=== PATIENT | female | born 1985 ===

== ENCOUNTER 2020-09-14 08:51 | Emergency (ER) | payer MEDICAID ==
[2020-09-14] MEDS ORDERED: Albuterol/Ipratropium 3.0-0.5 MG/3 ML Neb Soln NEB ONE ×2 (09:43→10:20)
[2020-09-14] MEDS ORDERED: methylPREDNISolone Sodium Succinate 125 MG/2 ML SDV IVPUSH ONE (09:43)
--- NOTE | 2020-09-14 09:43 | CR ---
PROCEDURE INFORMATION: Exam: XR Chest Exam date and time: 09/14/2020 9:15 AM Age: 35 years old Clinical indication: Other: Chest pain TECHNIQUE: Imaging protocol: XR of the chest. Views: 1 view. COMPARISON: No relevant prior studies available. FINDINGS: Lungs: Unremarkable. No consolidation. Pleural spaces: Unremarkable. No pleural effusion. No pneumothorax. Heart/Mediastinum: Unremarkable. No cardiomegaly. Bones/joints: Unremarkable. IMPRESSION: No acute findings.
--- NOTE | 2020-09-14 09:46 | EDM.PDOC ---
ED HPI GENERAL MEDICAL PROBLEM - General Chief Complaint: Respiratory Problem Stated Complaint: AMBULANCE Time Seen by Provider: 09/14/20 09:15 Source of Information: Reports: Patient, Police (Assisted nurse, [facility] department), RN, RN Notes Reviewed History Limitations: Reports: No Limitations, Respiratory Distress - History of Present Illness INITIAL COMMENTS - FREE TEXT/NARRATIVE: Patient is a 35-year-old female who presents to ER per [place] [facility] from [place] with complaint of shortness of breath. Patient admits to history of asthma. States in the past few months she has had an asthma attack and has been intubated. Patient was seen in [place] on Thursday with an asthma attack, started on steroids and Z-Pb. Patient has not been on these meds since incarcerated here. Patient states she has felt increasingly more short of breath since Thursday. States she did have a temperature on Thursday which she states was 106.2. Patient is afebrile upon arrival to the ER. EMS states oxygen saturation was 80% at the care home. Patient ambulated into the ER, oxygen saturation was 94% at that time on room air. Patient sat down on the bed and began to hyperventilate, patient was placed on 1 L per nasal cannula for comfort. Onset: Gradual Onset Date: 09/10/20 - Related Data Allergies Allergy/AdvReac Type Severity Reaction Status Date / Time heparin Allergy Rash Verified 09/14/20 09:03 Iodinated Contrast Media Allergy Respiratory Verified 09/14/20 09:03 Distress Home Meds: Home Meds . [No Known Home Meds] 09/14/20 [History] Social & Family History - Tobacco Use Tobacco Use Status *Q: Current Every Day Tobacco User Years of Tobacco use: 19 Packs/Tins Daily: 0.5 - Caffeine Use Caffeine Use: Reports: Coffee, Energy Drinks, Soda, Tea, Other - Recreational Drug Use Recreational Drug Use: Yes Drug Use in Last 12 Months: Yes Recreational Drug Type: Reports: Methamphetamine ED ROS GENERAL - Review of Systems Review Of Systems: Comprehensive ROS is negative, except as noted in HPI. ED EXAM, GENERAL - Physical Exam Exam: See Below Exam Limited By: No Limitations General Appearance: Alert, WD/WN, Anxious, Mild Distress Eye Exam: Bilateral Eye: EOMI, Normal Inspection Ears: Normal External Exam, Hearing Grossly Normal Nose: Normal Inspection Throat/Mouth: Normal Inspection, Normal Voice, No Airway Compromise Head: Atraumatic, Normocephalic Neck: Normal Inspection, Supple, Non-Tender, Full Range of Motion Respiratory/Chest: No Accessory Muscle Use, Chest Non-Tender, Wheezing (Throughout) Cardiovascular: Normal Peripheral Pulses, Regular Rate, Rhythm, No Edema, No Gallop, No JVD, No Murmur, No Rub, Tachycardia Peripheral Pulses: 2+: Radial (L), Radial (R) GI/Abdominal: Normal Bowel Sounds, Soft, Non-Tender (Female) Exam: Deferred Rectal (Female) Exam: Deferred Back Exam: Normal Inspection, Full Range of Motion, NT Extremities: Normal Inspection, Normal Range of Motion, Non-Tender, Normal Capillary Refill, No Pedal Edema Neurological: Alert, Oriented, Normal Cognition, Normal Gait, No Motor/Sensory Deficits Psychiatric: Normal Affect, Normal Mood, Anxious Skin Exam: Warm, Dry, Intact, Normal Color, No Rash Lymphatic: No Adenopathy Course - Vital Signs Last Recorded V/S: Last Vital Signs Temp 96.6 F L 09/14/20 09:09 Pulse 122 H 09/14/20 09:09 Resp 22 H 09/14/20 09:09 BP 138/88 09/14/20 09:09 Pulse Ox 94 L 09/14/20 09:09 - Orders/Labs/Meds Orders: Active Orders 24 hr Category Date Time Status RT Aerosol Therapy [RC] ASDIRECTED Care 09/14/20 09:45 Active RT Aerosol Therapy [RC] ASDIRECTED Care 09/14/20 10:20 Active CULTURE BLOOD [BC] Stat Lab 09/14/20 09:36 Received CULTURE BLOOD [BC] Stat Lab 09/14/20 10:10 Received CULTURE URINE [RM] Stat Lab 09/14/20 12:29 Received UA W/MICROSCOPIC [URIN] Stat Lab 09/14/20 12:29 Results Blood Culture x2 Reflex Set [OM.PC] Stat Oth 09/14/20 09:42 Ordered Labs: Laboratory Tests 09/14/20 09/14/20 09/14/20 Range/Units 09:36 09:36 09:36 WBC 11.4 H (5.0-10.0) 10^3/uL RBC 5.07 (4.2-5.4) 10^6/uL Hgb 13.9 (12.0-16.0) g/dL Hct 44.3 (37.0-47.0) % MCV 87.4 (80-100) fL MCH 27.4 (27.0-34.0) pg MCHC 31.4 L (33.0-35.0) g/dL Plt Count 374 (150-450) 10^3/uL Neut % (Auto) 63.3 (42.2-75.2) % Lymph % (Auto) 24.6 (20.5-50.1) % [place] % (Auto) 4.8 (2-8) % Eos % (Auto) 7.0 H (1.0-3.0) % Baso % (Auto) 0.3 (0.0-1.0) % D-Dimer, Quantitative (0-400) ng/mL Sodium 137 (136-145) mmol/L Potassium 4.1 (3.5-5.1) mmol/L Chloride 97 L (98-107) mmol/L Carbon Dioxide 30 (21-32) mmol/L Anion Gap 14.1 H (7-13) mEq/L BUN 10 (7-18) mg/dL Creatinine 0.77 (0.55-1.02) mg/dL Est Cr Clr Drug Dosing 85.96 mL/min Estimated GFR (MDRD) > 60 BUN/Creatinine Ratio 13.0 (No establ ref range) Glucose 109 H (70-99) mg/dL Lactic Acid (0.4-2.0) mmol/L Calcium 9.5 (8.5-10.1) mg/dL Magnesium 2.2 (1.8-2.4) mg/dL Total Bilirubin 0.2 (0.2-1.0) mg/dL AST 11 L (15-37) U/L ALT 24 (14-59) U/L Alkaline Phosphatase 80 (46-116) U/L Troponin I High Sens (<=51) pg/mL C-Reactive Protein 1.0 H (0.0-0.9) mg/dL B-Natriuretic Peptide 20 (0-100) pg/ml Total Protein 7.9 (6.4-8.2) g/dL Albumin 3.1 L (3.4-5.0) g/dL Globulin 4.8 Albumin/Globulin Ratio 0.65 Urine Color (YELLOW) Urine Appearance (CLEAR) Urine pH (5.0-9.0) Ur Specific [place] (1.005-1.030) Urine Protein (NEGATIVE) Urine Glucose (UA) (NEGATIVE) Urine Ketones (NEGATIVE) Urine Occult Blood (NEGATIVE) Urine Nitrite (NEGATIVE) Urine Bilirubin (NEGATIVE) Urine Urobilinogen (0.2-1.0) mg/dL Ur Leukocyte Esterase (NEGATIVE) Urine HCG, Qual Urine Opiates Screen (NEGATIVE) Ur Oxycodone Screen (NEGATIVE) Urine Methadone Screen (NEGATIVE) Ur Barbiturates Screen (NEGATIVE) U Tricyclic Antidepress (NEGATIVE) Ur Phencyclidine Scrn (NEGATIVE) Ur Amphetamine Screen (NEGATIVE) U Methamphetamines Scrn (NEGATIVE) Urine MDMA Screen (NEGATIVE) U Benzodiazepines Scrn (NEGATIVE) Urine Cocaine Screen (NEGATIVE) U Marijuana (THC) Screen (NEGATIVE) Influenza Type A RNA (NEGATIVE) Influenza Type B RNA (NEGATIVE) SARS-CoV-2 RNA (MARY KATE) (NEGATIVE) 09/14/20 09/14/20 09/14/20 Range/Units 09:36 09:36 09:36 WBC (5.0-10.0) 10^3/uL RBC (4.2-5.4) 10^6/uL Hgb (12.0-16.0) g/dL Hct (37.0-47.0) % MCV (80-100) fL MCH (27.0-34.0) pg MCHC (33.0-35.0) g/dL Plt Count (150-450) 10^3/uL Neut % (Auto) (42.2-75.2) % Lymph % (Auto) (20.5-50.1) % [place] % (Auto) (2-8) % Eos % (Auto) (1.0-3.0) % Baso % (Auto) (0.0-1.0) % D-Dimer, Quantitative 398 (0-400) ng/mL Sodium (136-145) mmol/L Potassium (3.5-5.1) mmol/L Chloride (98-107) mmol/L Carbon Dioxide (21-32) mmol/L Anion Gap (7-13) mEq/L BUN (7-18) mg/dL Creatinine (0.55-1.02) mg/dL Est Cr Clr Drug Dosing mL/min Estimated GFR (MDRD) BUN/Creatinine Ratio (No establ ref range) Glucose (70-99) mg/dL Lactic Acid 2.0 (0.4-2.0) mmol/L Calcium (8.5-10.1) mg/dL Magnesium (1.8-2.4) mg/dL Total Bilirubin (0.2-1.0) mg/dL AST (15-37) U/L ALT (14-59) U/L Alkaline Phosphatase (46-116) U/L Troponin I High Sens 8 (<=51) pg/mL C-Reactive Protein (0.0-0.9) mg/dL B-Natriuretic Peptide (0-100) pg/ml Total Protein (6.4-8.2) g/dL Albumin (3.4-5.0) g/dL Globulin Albumin/Globulin Ratio Urine Color (YELLOW) Urine Appearance (CLEAR) Urine pH (5.0-9.0) Ur Specific [place] (1.005-1.030) Urine Protein (NEGATIVE) Urine Glucose (UA) (NEGATIVE) Urine Ketones (NEGATIVE) Urine Occult Blood (NEGATIVE) Urine Nitrite (NEGATIVE) Urine Bilirubin (NEGATIVE) Urine Urobilinogen (0.2-1.0) mg/dL Ur Leukocyte Esterase (NEGATIVE) Urine HCG, Qual Urine Opiates Screen (NEGATIVE) Ur Oxycodone Screen (NEGATIVE) Urine Methadone Screen (NEGATIVE) Ur Barbiturates Screen (NEGATIVE) U Tricyclic Antidepress (NEGATIVE) Ur Phencyclidine Scrn (NEGATIVE) Ur Amphetamine Screen (NEGATIVE) U Methamphetamines Scrn (NEGATIVE) Urine MDMA Screen (NEGATIVE) U Benzodiazepines Scrn (NEGATIVE) Urine Cocaine Screen (NEGATIVE) U Marijuana (THC) Screen (NEGATIVE) Influenza Type A RNA (NEGATIVE) Influenza Type B RNA (NEGATIVE) SARS-CoV-2 RNA (MARY KATE) (NEGATIVE) 09/14/20 09/14/20 09/14/20 Range/Units 11:28 12:29 12:29 WBC (5.0-10.0) 10^3/uL RBC (4.2-5.4) 10^6/uL Hgb (12.0-16.0) g/dL Hct (37.0-47.0) % MCV (80-100) fL MCH (27.0-34.0) pg MCHC (33.0-35.0) g/dL Plt Count (150-450) 10^3/uL Neut % (Auto) (42.2-75.2) % Lymph % (Auto) (20.5-50.1) % [place] % (Auto) (2-8) % Eos % (Auto) (1.0-3.0) % Baso % (Auto) (0.0-1.0) % D-Dimer, Quantitative (0-400) ng/mL Sodium (136-145) mmol/L Potassium (3.5-5.1) mmol/L Chloride (98-107) mmol/L Carbon Dioxide (21-32) mmol/L Anion Gap (7-13) mEq/L BUN (7-18) mg/dL Creatinine (0.55-1.02) mg/dL Est Cr Clr Drug Dosing mL/min Estimated GFR (MDRD) BUN/Creatinine Ratio (No establ ref range) Glucose (70-99) mg/dL Lactic Acid (0.4-2.0) mmol/L Calcium (8.5-10.1) mg/dL Magnesium (1.8-2.4) mg/dL Total Bilirubin (0.2-1.0) mg/dL AST (15-37) U/L ALT (14-59) U/L Alkaline Phosphatase (46-116) U/L Troponin I High Sens (<=51) pg/mL C-Reactive Protein (0.0-0.9) mg/dL B-Natriuretic Peptide (0-100) pg/ml Total Protein (6.4-8.2) g/dL Albumin (3.4-5.0) g/dL Globulin Albumin/Globulin Ratio Urine Color Yellow (YELLOW) Urine Appearance Slightly cloudy (CLEAR) Urine pH 7.0 (5.0-9.0) Ur Specific [place] >= 1.030 (1.005-1.030) Urine Protein Negative (NEGATIVE) Urine Glucose (UA) Negative (NEGATIVE) Urine Ketones Negative (NEGATIVE) Urine Occult Blood Trace-intact H (NEGATIVE) Urine Nitrite Negative (NEGATIVE) Urine Bilirubin Negative (NEGATIVE) Urine Urobilinogen 0.2 (0.2-1.0) mg/dL Ur Leukocyte Esterase Moderate H (NEGATIVE) Urine HCG, Qual Negative Urine Opiates Screen (NEGATIVE) Ur Oxycodone Screen (NEGATIVE) Urine Methadone Screen (NEGATIVE) Ur Barbiturates Screen (NEGATIVE) U Tricyclic Antidepress (NEGATIVE) Ur Phencyclidine Scrn (NEGATIVE) Ur Amphetamine Screen (NEGATIVE) U Methamphetamines Scrn (NEGATIVE) Urine MDMA Screen (NEGATIVE) U Benzodiazepines Scrn (NEGATIVE) Urine Cocaine Screen (NEGATIVE) U Marijuana (THC) Screen (NEGATIVE) Influenza Type A RNA Negative (NEGATIVE) Influenza Type B RNA Negative (NEGATIVE) SARS-CoV-2 RNA (MARY KATE) Negative (NEGATIVE) 09/14/20 Range/Units 12:29 WBC (5.0-10.0) 10^3/uL RBC (4.2-5.4) 10^6/uL Hgb (12.0-16.0) g/dL Hct (37.0-47.0) % MCV (80-100) fL MCH (27.0-34.0) pg MCHC (33.0-35.0) g/dL Plt Count (150-450) 10^3/uL Neut % (Auto) (42.2-75.2) % Lymph % (Auto) (20.5-50.1) % [place] % (Auto) (2-8) % Eos % (Auto) (1.0-3.0) % Baso % (Auto) (0.0-1.0) % D-Dimer, Quantitative (0-400) ng/mL Sodium (136-145) mmol/L Potassium (3.5-5.1) mmol/L Chloride (98-107) mmol/L Carbon Dioxide (21-32) mmol/L Anion Gap (7-13) mEq/L BUN (7-18) mg/dL Creatinine (0.55-1.02) mg/dL Est Cr Clr Drug Dosing mL/min Estimated GFR (MDRD) BUN/Creatinine Ratio (No establ ref range) Glucose (70-99) mg/dL Lactic Acid (0.4-2.0) mmol/L Calcium (8.5-10.1) mg/dL Magnesium (1.8-2.4) mg/dL Total Bilirubin (0.2-1.0) mg/dL AST (15-37) U/L ALT (14-59) U/L Alkaline Phosphatase (46-116) U/L Troponin I High Sens (<=51) pg/mL C-Reactive Protein (0.0-0.9) mg/dL B-Natriuretic Peptide (0-100) pg/ml Total Protein (6.4-8.2) g/dL Albumin (3.4-5.0) g/dL Globulin Albumin/Globulin Ratio Urine Color (YELLOW) Urine Appearance (CLEAR) Urine pH (5.0-9.0) Ur Specific [place] (1.005-1.030) Urine Protein (NEGATIVE) Urine Glucose (UA) (NEGATIVE) Urine Ketones (NEGATIVE) Urine Occult Blood (NEGATIVE) Urine Nitrite (NEGATIVE) Urine Bilirubin (NEGATIVE) Urine Urobilinogen (0.2-1.0) mg/dL Ur Leukocyte Esterase (NEGATIVE) Urine HCG, Qual Urine Opiates Screen Negative (NEGATIVE) Ur Oxycodone Screen Negative (NEGATIVE) Urine Methadone Screen Negative (NEGATIVE) Ur Barbiturates Screen Negative (NEGATIVE) U Tricyclic Antidepress Negative (NEGATIVE) Ur Phencyclidine Scrn Negative (NEGATIVE) Ur Amphetamine Screen Positive H (NEGATIVE) U Methamphetamines Scrn Positive H (NEGATIVE) Urine MDMA Screen Negative (NEGATIVE) U Benzodiazepines Scrn Negative (NEGATIVE) Urine Cocaine Screen Negative (NEGATIVE) U Marijuana (THC) Screen Negative (NEGATIVE) Influenza Type A RNA (NEGATIVE) Influenza Type B RNA (NEGATIVE) SARS-CoV-2 RNA (MARY KATE) (NEGATIVE) Meds: Medications Discontinued Medications Generic Name Dose Route Start Last Admin Trade Name Freq PRN Reason Stop Dose Admin Albuterol/Ipratropium 3 ml 09/14/20 09:43 09/14/20 10:10 Albuterol/Ipratropium 3.0-0.5 Mg/3 Ml Neb Soln NEB 09/14/20 09:44 3 ml ONETIME ONE Administration Albuterol/Ipratropium 3 ml 09/14/20 10:20 09/14/20 10:37 Albuterol/Ipratropium 3.0-0.5 Mg/3 Ml Neb Soln NEB 09/14/20 10:21 3 ml ONETIME ONE Administration Albuterol/Ipratropium Confirm 09/14/20 10:18 09/14/20 10:37 Albuterol/Ipratropium 3.0-0.5 Mg/3 Ml Neb Soln Administered 09/14/20 10:19 3 ml Dose Administration 3 ml .ROUTE .STK-MED ONE Magnesium Sulfate 2 gm/ Premix 50 mls @ 25 mls/hr 09/14/20 10:21 09/14/20 10:27 IV 09/14/20 12:20 150 mls/hr ONETIME ONE Administration Magnesium Sulfate 2 gm/ Premix 50 mls @ 25 mls/hr 09/14/20 10:21 09/14/20 11:04 IV 09/14/20 12:20 Not Given ONETIME ONE Lactated Ringer's 1,000 mls @ 999 mls/hr 09/14/20 11:27 09/14/20 11:34 Ringers, Lactated IV 09/14/20 12:27 999 mls/hr .BOLUS ONE Administration Lorazepam 1 mg 09/14/20 10:49 09/14/20 11:07 Lorazepam 2 Mg/Ml Sdv IVPUSH 09/14/20 10:50 1 mg ONETIME ONE Administration Methylprednisolone Sodium Succinate 125 mg 09/14/20 09:43 09/14/20 10:10 Methylprednisolone Sodium Succinate 125 Mg/2 Ml Sdv IVPUSH 09/14/20 09:44 125 mg ONETIME ONE Administration - Radiology Interpretation Free Text/Narrative:: Chest xray: PROCEDURE INFORMATION: Exam: XR Chest Exam date and time: 09/14/2020 9:15 AM Age: 35 years old Clinical indication: Other: Chest pain TECHNIQUE: Imaging protocol: XR of the chest. Views: 1 view. COMPARISON: No relevant prior studies available. FINDINGS: Lungs: Unremarkable. No consolidation. Pleural spaces: Unremarkable. No pleural effusion. No pneumothorax. Heart/Mediastinum: Unremarkable. No cardiomegaly. Bones/joints: Unremarkable. IMPRESSION: No acute findings. Thank you for allowing us to participate in the care of your patient. Dictated and Authenticated by: Alan Leonard MD 09/14/2020 9:43 AM Central Time ([place] & [place]) See rad report - Re-Assessments/Exams Free Text/Narrative Re-Assessment/Exam: 09/14/20 11:37 Patient's respiratory status began increasingly more respiratory distress, patient became very diaphoretic. Patient had been placed on BiPAP. Patient was consistently getting a DuoNeb nebulizer. Discussed patient case with Dr. Chirinos at [facility] who agreed to accept the patient for transfer. Delay in transfer due to chopper unable to fly due to the smoke in the air, fixed wing coming from [facility] will be here in 90 minutes. After lorazepam given, patient is less agitated, but oxygen saturation down to 88 to 89% on room air. Patient placed back on BiPAP. Departure - Departure Time of Disposition: 12:47 Disposition: DC/Tfer to [facility] 02 Condition: Fair Clinical Impression: Respiratory distress Asthma with status asthmaticus Qualifiers: Asthma severity: moderate Asthma persistence: unspecified Qualified Code(s): J45.902 - Unspecified asthma with status asthmaticus - Discharge Information *PRESCRIPTION DRUG MONITORING PROGRAM REVIEWED*: No *COPY OF PRESCRIPTION DRUG MONITORING REPORT IN PATIENT ELZBIETA: No Forms: ED Department Discharge, Interfacility Transfer [facility] Sepsis Event Note (ED) - Evaluation Sepsis Screening Result: No Definite Risk - Focused Exam Vital Signs: Vital Signs Temp Pulse Resp BP Pulse Ox 09/14/20 09:09 96.6 F L 122 H 22 H 138/88 94 L - My Orders Last 24 Hours: My Active Orders 09/14/20 09:36 CULTURE BLOOD [BC] Stat 09/14/20 09:42 Blood Culture x2 Reflex Set [OM.PC] Stat 09/14/20 09:45 RT Aerosol Therapy [RC] ASDIRECTED 09/14/20 10:10 CULTURE BLOOD [BC] Stat 09/14/20 10:20 RT Aerosol Therapy [RC] ASDIRECTED 09/14/20 12:29 CULTURE URINE [RM] Stat UA W/MICROSCOPIC [URIN] Stat - Assessment/Plan Last 24 Hours: My Active Orders 09/14/20 09:36 CULTURE BLOOD [BC] Stat 09/14/20 09:42 Blood Culture x2 Reflex Set [OM.PC] Stat 09/14/20 09:45 RT Aerosol Therapy [RC] ASDIRECTED 09/14/20 10:10 CULTURE BLOOD [BC] Stat 09/14/20 10:20 RT Aerosol Therapy [RC] ASDIRECTED 09/14/20 12:29 CULTURE URINE [RM] Stat UA W/MICROSCOPIC [URIN] Stat
[2020-09-14 10:16] LABS: ANION GAP 14.1 mEq/L (7-13); CHLORIDE,CL 97 mmol/L (98-107); SODIUM,NA 137 mmol/L (136-145)
[2020-09-14] MEDS ORDERED: Albuterol/Ipratropium 3.0-0.5 MG/3 ML Neb Soln ONE (10:18)
[2020-09-14] MEDS ORDERED: Magnesium Sulfate/Water 2 GM in Premix Bag 1 BAG IV ONE ×4 (10:21)
[2020-09-14] MEDS ORDERED: LORazepam 2 MG/ML SDV IVPUSH ONE (10:49)
[2020-09-14] MEDS ORDERED: Lactated Ringers 1,000 ML IV ONE (11:27)
[2020-09-14 12:13] LABS: CORONAVIRUS COVID-19 NAA NEGATIVE (NEGATIVE)
[2020-09-14 12:40] LABS: AMPHETAMINES,URINE POSITIVE (NEGATIVE); BARBITURATES,URINE NEGATIVE (NEGATIVE); BENZODIAZEPINE,URINE NEGATIVE (NEGATIVE); MDMA (ECSTASY), URINE NEGATIVE (NEGATIVE); METHADONE,URINE NEGATIVE (NEGATIVE); METHAMPHETAMINES,URINE POSITIVE (NEGATIVE); OPIATES,URINE NEGATIVE (NEGATIVE); OXYCODONE,URINE NEGATIVE (NEGATIVE); PHENCYCLIDINE,URINE NEGATIVE (NEGATIVE); TCA,URINE NEGATIVE (NEGATIVE)
== END 2020-09-14 12:50 ==
LOC: DL.ED 08:51
DX: J45.902 Unspecified asthma with status asthmaticus (principal); R06.03 Acute respiratory distress; Z72.0 Tobacco use; Z88.8 Allergy status to other drugs, medicaments and biological substances; Z91.041 Radiographic dye allergy status; Z20.822 Contact with and (suspected) exposure to COVID-19
CPT/HCPCS: 0240U; 36415; 71045; 80053; 80305; 81001; 81025; 83605; 83735; 83880; 84484; 85025; 85379; 86140; 87040; 87086; 94640; 96365; 96375; 99284; 99285; J2060; J2930; J3475; J7120; J7620-GY